=== PATIENT | male | born 1955 | race Caucasian/White ===

== ENCOUNTER → 2021-05-11 14:34 | Outpatient (CLI) | payer OTHER, SELFPAY ==
--- NOTE | ~2021-05-11 | XR_ITS ---
EXAMINATION: XR hip LT min 2V DATE: 05/11/2021 14:52 INDICATION: Left hip pain. Piriformis syndrome. TECHNIQUE: 2 views of left hip were obtained. COMPARISON: None. FINDINGS: Bone alignment is normal. No fracture. There is mild left hip osteoarthritis characterized by tiny marginal osteophytes. IMPRESSION: 1. Mild left hip osteoarthritis. Reviewed, dictated and finalized at location A.
== END ==
PROVIDERS: PCP Emergency Medicine; Visit Provider Emergency Medicine
DX: G57.02 Lesion of sciatic nerve, left lower limb (principal); M16.12 Unilateral primary osteoarthritis, left hip
CPT/HCPCS: 73502

== ENCOUNTER → 2021-07-22 15:19 | Outpatient (CLI) | payer OTHER, SELFPAY ==
--- NOTE | ~2021-07-22 | XR_ITS ---
EXAMINATION: XR lumbar spine 6V w bending DATE: 07/22/2021 15:56 INDICATION: Low back pain. Left leg pain. TECHNIQUE: 7 views of lumbar spine including flexion and extension views were obtained. COMPARISON: None. FINDINGS: There is 10 degrees dextroscoliosis of lumbar spine. There is 3 mm retrolisthesis of L3 on L4. Vertebral body heights are normal. There is moderately decreased disc height at L1-L2 and mildly decreased disc height at L2-L3 and L3-L4. There is no abnormal motion with flexion or extension. Ther e is moderate to severe facet joint osteoarthritis bilaterally at L4-L5 and L5-S1. There is mild face t joint osteoarthritis at the other levels of lumbar spine. There are surgical clips in the left abdo men. IMPRESSION: 1. Moderate lumbar spondylosis. 2. Lumbar dextroscoliosis. Reviewed, dictated and finalized at location A.
== END ==
PROVIDERS: Visit Provider Orthopaedic Surgery
DX: M79.605 Pain in left leg (principal); M47.896 Other spondylosis, lumbar region
CPT/HCPCS: 72114

== ENCOUNTER → 2021-08-22 07:59 | Outpatient (CLI) | payer OTHER, SELFPAY ==
--- NOTE | ~2021-08-22 | MR_ITS ---
EXAMINATION: MR lumbar spine wo con EXAM DATE: 08/22/2021 08:52 INDICATION: M54.50 - Low back pain, unspecified left sided low back/buttock/hip/leg pain x6mos, no tr auma. TECHNIQUE: Multi-sequential, multiplanar MR images of the lumbar spine were obtained without contrast . Sagittal T1, T2, T2 fat saturation images. Axial T2 weighted images. There is no prior study for comparison. FINDINGS: There are scattered focal signal abnormalities consistent with hemangiomata, otherwise with out focal suspicious marrow signal abnormalities. There is mild to moderate disc disease at T11-12 a nd L1-2, mild loss of the L2-3 and L3-4 disc height. The conus medullaris terminates at the T12-L1 le dannie and has normal signal intensity and morphology. The vertebral bodies are aligned in the AP dimen sophie. Paraspinal soft tissue is unremarkable. Mild splenomegaly, spleen measuring 14. 5 cm in cranioc audal dimension. Level by level evaluation: T12-L1: Disc does not extend beyond the endplate margin. Facet arthropathy: None. Neural foraminal stenosis: No stenosis. Central canal stenosis: No stenosis. L1-L2: There is a mild diffuse disc bulge. Facet arthropathy: Mild. Neural foraminal stenosis: No stenosis. Central canal stenosis: No stenosis. L2-L3: There is a mild diffuse disc bulge. Facet arthropathy: Mild. Neural foraminal stenosis: Mild left. Central canal stenosis: Mild. L3-L4: There is a mild diffuse disc bulge. Facet arthropathy: Mild. Neural foraminal stenosis: Mild to moderate left, mild right. Central canal stenosis: No stenosis. L4-L5: There is a mild diffuse disc bulge. Facet arthropathy: Mild to moderate. Neural foraminal stenosis: Mild to moderate left, mild right. Central canal stenosis: Mild. L5-S1: There is a mild diffuse disc bulge. Facet arthropathy: Mild to moderate right, mild left. Neural foraminal stenosis: Mild to moderate right, mild left. Central canal stenosis: No stenosis. IMPRESSION: 1. Mild to moderate lumbar spondylosis. 2. Mild splenomegaly. Reviewed, dictated and finalized at location A. 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
== END ==
PROVIDERS: Visit Provider Orthopaedic Surgery
DX: M47.896 Other spondylosis, lumbar region (principal); R16.1 Splenomegaly, not elsewhere classified
CPT/HCPCS: 72148